=== PATIENT | female | born 1985 ===

== ENCOUNTER 2018-05-27 14:46 | Emergency (ER) | payer SELFPAY ==
[2018-05-27 15:36] VITALS: BMI 25.6
[2018-05-27 15:39] VITALS: BP 143/83; PULSE 62; RESP 18; TEMP 97.6
--- NOTE | 2018-05-27 16:08 | ED PDOC ---
Arrival/HPI - General Chief Complaint: Back Pain Time Seen by Provider: 05/27/18 15:50 - History of Present Illness Narrative History of Present Illness (Text): 33 y/o F p/w L sided neck/upper back pain x 3 weeks. Patient states she awoke with the pain in the L sided neck, sharp, worse with movement. Gradually moving down to L upper back over the following weeks. She suspected it was a pain from "sleeping wrong" but came to ED today because pain has been persistent for 3 weeks now. Denies fever, trauma, chest pain, dyspnea, numbness, motor weakness. Past Medical History - Infectious Disease Hx of Infectious Diseases: None - Reproductive Currently : No - Psychiatric Hx Substance Use: No - Surgical History Hx Section: Yes (x1) Family/Social History Family/Social History: No Known Family HX Smoking Status: Current Some Days Smoker Hx Alcohol Use: Yes Frequency of alcohol use: Socially Hx Substance Use: No Allergies/Home Meds Allergies/Adverse Reactions: Allergies No Known Allergies Allergy (Verified 05/27/18 15:36) Review of Systems - Physician Review All systems were reviewed & negative as marked: Yes - Review of Systems Constitutional: absent: Fevers Respiratory: absent: SOB Cardiovascular: absent: Chest Pain Physical Exam - Physical Exam Narrative Physical Exam (Text): Gen: NAD Head: NC/AT Eyes: No scleral icterus ENT: MMM Neck: No midline tenderness. L paraspinal tenderness Chest: No tenderness Back: No midline tenderness. Reproducible tenderness over L upper trapezius Extremities: FROM of L arm without edema or tenderness Skin: No ecchymosis or rash Neuro: Alert, no focal deficit. Vital Signs Temp Pulse Resp BP Pulse Ox 05/27/18 15:37 97.6 F 62 18 143/83 100 Medical Decision Making ED Course and Treatment: Toradol IM for pain. XR shows no fracture or dislocation. Advised f/u with Ortho. Return to ED for worsening pain, fever, dyspnea, weakness, or any other problem. - RAD Interpretation Radiology Orders: 05/27/18 16:04 SHOULDER LEFT [RAD] Stat 05/27/18 16:05 CERVICAL SPINE AP & LATERAL [RAD] Stat - Medication Orders Current Medication Orders: Discontinued Medications Ketorolac Tromethamine (Toradol) 60 mg IM STAT STA Stop: 05/27/18 16:05 Disposition/Present on Arrival - Present on Arrival Any Indicators Present on Arrival: No History of DVT/PE: No History of Uncontrolled Diabetes: No Urinary Catheter: No History of Decub. Ulcer: No History Surgical Site Infection Following: None - Disposition Have Diagnosis and Disposition been Completed?: Yes Diagnosis: Neck strain Disposition: HOME/ ROUTINE Disposition Time: 17:51 Patient Plan: Discharge Patient Problems: Current Active Problems Problem Status Onset Neck strain Acute Condition: STABLE Discharge Instructions (ExitCare): Neck Sprain (DC) Prescriptions: Famotidine [Pepcid] 1 tab PO BID #14 tab Ibuprofen [Motrin] 600 mg PO Q6 #25 tab Methocarbamol [Robaxin-750] 1 tab PO Q8H #12 tablet Referrals: Phil Martinez III, MD [Medical Doctor] - Follow up with primary Forms: [facility] (Urdu), WORK NOTE
--- NOTE | 2018-05-27 18:52 | RAD ---
Date of service: 05/27/2018 PROCEDURE: Cervical Spine Radiographs. HISTORY: Left-sided neck Pain. No history of recent/ related trauma provided COMPARISON: None available. FINDINGS: BONES: Reversal of the anatomic lordosis with kyphosis. Degree: Moderate. DISC SPACES: Normal. SOFT TISSUES: Normal. No prevertebral soft tissue swelling. OTHER FINDINGS: None. IMPRESSION: Kyphosis replaces anatomic lordosis. Otherwise unremarkable study. Concordant results with the preliminary interpretation rendered by the emergency department physician procedure.
[2018-05-27 19:36] VITALS: O2SAT 99
--- NOTE | 2018-05-28 15:29 | RAD ---
PROCEDURE: Radiographs of the Left Shoulder HISTORY: L upper back/shoulder pain COMPARISON: None available. FINDINGS: BONES: No acute displaced fracture. The distal clavicle and underlying ribs appear intact. JOINTS: No acute dislocation. SOFT TISSUES: Soft tissues appear unremarkable. No evidence of radiopaque foreign body. IMPRESSION: No acute displaced fracture or dislocation evident. If symptoms persist or if there is continued clinical concern, x-ray follow-up in 7-10 days should be considered.
== END 2018-05-27 19:34 | disposition home or self-care (01) ==
LOC: ED 14:46 → MERGE 14:46 → ED 19:34
DX: S16.1XXA Strain of muscle, fascia and tendon at neck level, initial encounter (principal); X58.XXXA Exposure to other specified factors, initial encounter
CPT/HCPCS: 72040; 73030; 81025; 96372; 99283; J1885